=== PATIENT | male | born 1935 | race Caucasian/White ===

== ENCOUNTER 2017-12-08 16:25 | Inpatient (IN) | payer MEDICARE, OTHER ==
[2017-12-08 16:25] VITALS: BMI 28.1
[2017-12-08] MEDS ORDERED: Sodium Chloride 0.9% 500 ML IV ONE (17:18)
--- NOTE | 2017-12-08 17:21 | ED PDOC ---
Syncope/Near Syncope/Dizziness Time Seen by Provider: 12/08/17 17:18 Chief Complaint (Nursing): Weakness/Neurological Deficit Chief Complaint (Provider): WEAKNESS History Per: Patient (82 Y/O MALE H/O MILD DEMENTIA, CVA 2 YEARS AGO, DM/HTN HERE WITH NEAR SYNCOPE TODAY AT 3:30PM AFTER WALKING. DENIES ANY HEAD INJURY/ LOC. NO UNILATERAL WEAKNESS NOTED. NO DIFFICULTY WITH SPEECH PER FAMILY. DENIES ANY CHEST PAIN/ABDOMINAL PAIN/HEADACHE.) Past Medical History Reviewed: Historical Data, Nursing Documentation, Vital Signs Vital Signs: Last Vital Signs Temp 98.9 F 12/08/17 16:43 Pulse 77 12/08/17 16:43 Resp 18 12/08/17 16:43 BP 127/77 12/08/17 16:43 Pulse Ox 99 12/08/17 16:43 - Medical History PMH: Diabetes, HTN, Hypercholesterolemia, Hyperlipidemia, TIA (last TIA in [facility]) Denies: Arthritis, CHF, COPD, HIV, Hypothyroidism, Chronic Kidney Disease, Rheumatoid Arthritis - Surgical History Other surgeries: H/O FACIAL INJURY IN PAST DUE TO. H/O BOXING YOUTH - Family History Family History: States: No Known Family Hx - Home Medications Home Medications: Ambulatory Orders Medication Instructions Recorded Allopurinol [Zyloprim] 1 tab PO DAILY 12/08/17 Alpha Lipoic Acid [Alpha Lipoic 1 tab PO DAILY 12/08/17 Acid] Aspirin [Low Dose Aspirin EC] 1 tab PO DAILY 12/08/17 Atorvastatin [Lipitor] 1 tab PO HS 12/08/17 Bethanechol [Urecholine] 1 tab PO DAILY 12/08/17 Clopidogrel [Plavix] 1 tab PO DAILY 12/08/17 Enalapril Maleate [Vasotec] 1 tab PO DAILY 12/08/17 Ergocalciferol (Vitamin D2) 1 tab PO SAT 12/08/17 [Vitamin D2] Ferrous Sulfate [Feosol] 1 tab PO BID 12/08/17 Insulin Detemir [Levemir] 18 units SC HS 12/08/17 Insulin Lispro [humALOG] 5 units SC TID 12/08/17 Memantine HCl/Donepezil HCl 1 tab PO DAILY 12/08/17 [Namzaric 28 mg-10 mg Capsule] Metoprolol Succinate [Toprol XL] 1 tab PO DAILY 12/08/17 Sevelamer Carbonate [Renvela] 1 tab PO DAILY 12/08/17 Sodium Bicarbonate Tab [Sodium 1 tab PO DAILY 12/08/17 Bicarbonate Tab] Tamsulosin [Flomax] 1 tab PO BID 12/08/17 - Allergies Allergies/Adverse Reactions: Allergies Allergy/AdvReac Type Severity Reaction Status Date / Time No Known Allergies Allergy Verified 12/08/17 16:42 Review of Systems ROS Statement: Except As Marked, All Systems Reviewed And Found Negative Physical Exam - Reviewed Nursing Documentation Reviewed: Yes Vital Signs Reviewed: Yes - Physical Exam Appears: Positive for: Well, Non-toxic, No Acute Distress Head Exam: Positive for: ATRAUMATIC, NORMAL INSPECTION, NORMOCEPHALIC Skin: Positive for: Normal Color, Warm, DRY Eye Exam: Positive for: EOMI, Normal appearance, PERRL ENT: Positive for: Normal ENT Inspection Neck: Positive for: Normal, Painless ROM Cardiovascular/Chest: Positive for: Regular Rate, Rhythm Respiratory: Positive for: CNT, Normal Breath Sounds Gastrointestinal/Abdominal: Positive for: Normal Exam, Soft Back: Positive for: Normal Inspection Extremity: Positive for: Normal ROM Neurologic/Psych: Positive for: Alert, Oriented (NOT ORIENTED TO DAY/BUT ORIENTED TO MONTH AND PLACE (H/O DEMENTIA)), Other (LEFT FACIAL ASSYMETRY NOTED (OLD PER DUE TO FACIAL INJURY YOUTH)) - Laboratory Results Result Diagrams: 12/08/17 17:40 12/08/17 17:40 - ECG ECG Rhythm: Positive for: Sinus Rhythm (NSR 76BPM; NO ECTOPY ;NO ACUTE CHANGES) O2 Sat by Pulse Oximetry: 99 - Progress ED Course And Treament: ACCUCHECK 118 NS 500 ML IV BOLUS Disposition - Clinical Impression Clinical Impression: Near syncope, Dehydration - Patient ED Disposition Is Patient to be Admitted: Yes - Disposition Disposition Time: 19:02 Condition: FAIR Forms: [facility] (Portuguese) - Pt Status Changed To: Hospital Disposition Of: Observation
[2017-12-08 18:00] LABS: BASO % 0.4 % (0.0-2.0); EOS # 0.1 K/uL (0.0-0.7); EOS % 0.9 % (0.0-4.0); LYMPH % 12.1 % (20.0-40.0); MEAN CELL VOLUME 85.4 fl (80.0-94.0); MEAN CORPUSCULAR HEMOGLOBIN 27.5 pg (27.0-31.0); MEAN CORPUSCULAR HGB CONC 32.2 g/dL (33.0-37.0); MEAN PLATELET VOLUME 9.3 fl (7.2-11.7); MONO # 0.6 K/uL (0.0-0.8); MONO % 7.7 % (0.0-10.0); NEUT # 6.3 K/uL (1.8-7.0); NEUT % 78.9 % (50.0-75.0); RBC 3.65 Mil/uL (4.40-5.90); RED CELL DISTRIBUTION WIDTH 15.1 % (11.5-14.5)
[2017-12-08 18:09] LABS: ALBUMIN 3.6 g/dL (3.5-5.0); ALT/SGPT 70 U/L (21-72); AST/SGOT 85 U/L (17-59); BLOOD UREA NITROGEN 38 mg/dl (9-20); CALCIUM 8.5 mg/dL (8.4-10.2); GFR AFRICAN-AMERICAN 44; GFR NON-AFRICAN AMERICAN 36
--- NOTE | 2017-12-08 18:25 | CT ---
PROCEDURE: CT HEAD WITHOUT CONTRAST. HISTORY: NEAR SYNCOPE COMPARISON: 10/22/2015 TECHNIQUE: Axial computed tomography images were obtained through the head/brain without intravenous contrast. Radiation dose: Total exam DLP = 697.42 mGy-cm. This CT exam was performed using one or more of the following dose reduction techniques: Automated exposure control, adjustment of the mA and/or kV according to patient size, and/or use of iterative reconstruction technique. FINDINGS: HEMORRHAGE: No intracranial hemorrhage. BRAIN: No mass effect or edema. Mild diffuse age-appropriate cerebral atrophy. Moderate periventricular white matter lucency with patchy and confluent deep/ subcortical white matter lucency, consistent with chronic microvascular ischemic change. No evidence of acute infarct. VENTRICLES: Unremarkable. No hydrocephalus. CALVARIUM: Unremarkable. PARANASAL SINUSES: Unremarkable as visualized. No significant inflammatory changes. MASTOID AIR CELLS: Unremarkable as visualized. No inflammatory changes. OTHER FINDINGS: None. IMPRESSION: No intracranial mass, hemorrhage or evidence of acute infarct. Age-appropriate involutional changes.
[2017-12-08] MEDS ORDERED: Sodium Chloride 0.9% 1,000 ML IV STA ×2 (20:03→20:04)
[2017-12-08] MEDS: Dextrose 5%/0.45% NS 1,000 ML IV SCH (23:30)
--- NOTE | 2017-12-09 08:25 | CARD ---
APPROVED REPORT EKG Measurement Heart [id number] MA [id number] [id number] <Conclusion> Normal sinus rhythm Right bundle branch block Left anterior fascicular block Bifascicular block Abnormal ECG
--- NOTE | 2017-12-09 08:25 | RAD ---
PROCEDURE: CHEST RADIOGRAPH, 1 VIEW HISTORY: ROUTINE COMPARISON: None available. FINDINGS: LUNGS: Clear. PLEURA: No pneumothorax or pleural fluid seen. CARDIOVASCULAR: Normal. OSSEOUS STRUCTURES: No significant abnormalities. VISUALIZED UPPER ABDOMEN: Normal. OTHER FINDINGS: None. IMPRESSION: No active disease.
[2017-12-09 08:39] LABS: HEMOGLOBIN 10.8 g/dL (12.0-18.0); MEAN CELL VOLUME 85.6 fl (80.0-94.0); MEAN CORPUSCULAR HEMOGLOBIN 27.7 pg (27.0-31.0); MEAN CORPUSCULAR HGB CONC 32.4 g/dL (33.0-37.0); RBC 3.9 Mil/uL (4.40-5.90); RED CELL DISTRIBUTION WIDTH 15.2 % (11.5-14.5); WHITE BLOOD COUNT 7.5 K/uL (4.8-10.8)
--- NOTE | 2017-12-09 08:41 | CARD ---
APPROVED REPORT EKG Measurement Heart [id number] SD 130P41 [id number] <Conclusion> Normal sinus rhythm Pulmonary disease pattern Left anterior fascicular block Incomplete RBBB Abnormal ECG
[2017-12-09] MEDS: Metoprolol Succinate 25 mg XL Tab PO SCH (10:11)
--- NOTE | 2017-12-09 11:48 | HP ---
ADMITTING HISTORY AND PHYSICAL HISTORY OF PRESENT ILLNESS: Mr. Aguayo is an 82-year-old male who was admitted via the Emergency Room because of a near syncopal episode on the day of admission. He became dizzy after walking around and was brought to the Emergency Room. Denies speech disturbances. Denies weakness of arm or leg. PAST MEDICAL HISTORY: Remarkable for diabetes mellitus, hypertension, dementia, hyperlipidemia and transient ischemic attack. FAMILY HISTORY: Unrevealing. SOCIAL HISTORY: He does not drink or smoke. REVIEW OF SYSTEMS: Essentially remarkable for confusion and altered mental status. MEDICATIONS Multiple and include Zyloprim, acid, aspirin, Lipitor, Urecholine, Plavix, Vasotec, vitamin D, Feosol, Levemir, Humalog, Aricept, Toprol-XL, Renvela, sodium bicarbonate and Flomax. PHYSICAL EXAMINATION: GENERAL: The patient is alert, but confused. VITAL SIGNS: Blood pressure of 171/71 with a pulse of 60, and respiratory rate of 18. He is febrile. O2 saturation of 97% on room air. SKIN: Shows fair turgor. HEENT: Pupils are equal and reactive to light and accommodation. Mouth shows fair hygiene. JVP flat. LUNGS: Clear. HEART: Regular. No murmurs or gallops. GASTROINTESTINAL: Abdomen is soft and nontender. No organomegaly. EXTREMITIES: Shows no edema or cyanosis. NEUROLOGIC: On central nervous system exam, the patient is alert but confused to person, place and time. Gait is unsteady. LABORATORY DATA: Remarkable for WBC of 7.5, hemoglobin of 10.8, and platelet count of 230,000. Sodium of 145, potassium of 4.3, BUN of 30, and creatinine of 1.4. Troponin is less than 0.012. DIAGNOSTIC DATA: Chest x-ray; no active disease. CT scan of the head; no intracranial mass, hemorrhage or evidence of acute infarct, age appropriate involutional changes. EKG; normal sinus rhythm, right bundle-branch block and left anterior fascicular block. IMPRESSION AND PLAN: Near syncope, probably multifactorial and probably secondary to mild dehydration, uncontrolled hypertension and diabetes. The plan is IV hydration. Monitor blood pressure closely. Physical and occupational therapy evaluation. Second Time Worker for discharge planning once clinically stable. Nasir Rogers MD [facility] # [phone] PAYAL
--- NOTE | 2017-12-09 12:45 | CP.PCM.CON ---
History of Present Illness - History of Present Illness History of Present Illness: Neurology Consultation Note: Mr. Aguayo is an 82-year-old man with a past medical history of dementia and a CVA two years ago who had a near syncopal event yesterday while ambulating. He was brought to the ED. He was back to baseline. CT scan of the head did not show any acute findings. Neurology was consulted to assist with the management and care. Review of Systems - Review of Systems All systems: reviewed and no additional remarkable complaints except Past Patient History - Past Medical History & Family History Past Medical History?: Yes - Past Social History Smoking Status: Never Smoked - CARDIAC Hx Congestive Heart Failure: No Hx Hypercholesterolemia: Yes Hx Hypertension: Yes - PULMONARY Hx Chronic Obstructive Pulmonary Disease (COPD): No - NEUROLOGICAL HX Cerebrovascular Accident: Yes Hx Transient Ischemic Attacks (TIA): Yes (last TIA in [facility]) - HEENT Hx Cataracts: Yes (with lasik done) - RENAL Hx Chronic Kidney Disease: No - ENDOCRINE/METABOLIC Hx Diabetes Mellitus Type 2: Yes Hx Hypothyroidism: No - HEMATOLOGICAL/ONCOLOGICAL Hx AIDS: No Hx Human Immunodeficiency Virus (HIV): No - INTEGUMENTARY Hx Dermatological Problems: No - MUSCULOSKELETAL/RHEUMATOLOGICAL Hx Arthritis: No Hx Falls: No Hx Rheumatoid Arthritis: No - GASTROINTESTINAL Hx Gastrointestinal Disorders: No - GENITOURINARY/GYNECOLOGICAL Hx Genitourinary Disorders: No - PSYCHIATRIC Hx Substance Use: No Other/Comment: Dementia - SURGICAL HISTORY Hx Surgeries: Yes (cyst removal on hand) - ANESTHESIA Hx Anesthesia: Yes Hx Anesthesia Reactions: No Hx Malignant Hyperthermia: No Has any member of the family had a problem w/ anesthesia?: No Meds Allergies/Adverse Reactions: Allergies Allergy/AdvReac Type Severity Reaction Status Date / Time No Known Allergies Allergy Verified 12/08/17 16:42 - Medications Medications: Current Medications Aspirin (Ecotrin) 81 mg PO DAILY [facility] Last Admin: 12/09/17 10:10 Dose: 81 mg Atorvastatin Calcium (Lipitor) 20 mg PO [facility] Clopidogrel Bisulfate (Plavix) 75 mg PO DAILY [facility] Last Admin: 12/09/17 10:10 Dose: 75 mg Dextrose/Sodium Chloride (Dextrose 5%/0.45% Ns 1000 Ml) 1,000 mls @ 80 mls/hr IV .[id number] [facility] Stop: 12/10/17 00:44 Last Admin: 12/08/17 23:30 Dose: 80 mls/hr Insulin Detemir (Levemir) 18 units SC HS [facility] Metoprolol Succinate (Toprol Xl) 25 mg PO DAILY [facility] Last Admin: 12/09/17 10:11 Dose: 25 mg Tamsulosin HCl (Flomax) 0.4 mg PO BID [facility] Last Admin: 12/09/17 10:10 Dose: 0.4 mg Physical Exam - Neurological Exam Neurological exam: Alert, CN II-XII Intact, Normal Gait, Oriented x3, Reflexes Normal Results - Vital Signs Recent Vital Signs: Last Vital Signs Temp 98.3 F 12/09/17 12:00 Pulse 81 12/09/17 12:00 Resp 20 12/09/17 12:00 BP 164/76 H 12/09/17 12:00 Pulse Ox 98 12/09/17 12:00 - Labs Result Diagrams: 12/09/17 06:07 12/09/17 06:07 Labs: Laboratory Results - last 24 hr 12/08/17 12/08/17 12/08/17 16:56 17:40 17:40 WBC 8.0 RBC 3.65 L Hgb 10.0 L Hct 31.2 L MCV 85.4 D MCH 27.5 MCHC 32.2 L RDW 15.1 H Plt Count 211 MPV 9.3 Neut % (Auto) 78.9 H Lymph % (Auto) 12.1 L [place] % (Auto) 7.7 Eos % (Auto) 0.9 Baso % (Auto) 0.4 Neut # (Auto) 6.3 Lymph # (Auto) 1.0 [place] # (Auto) 0.6 Eos # (Auto) 0.1 Baso # (Auto) 0.0 Sodium 140 Potassium 4.7 Chloride 105 Carbon Dioxide 20 L Anion Gap 20 BUN 38 H Creatinine 1.8 H Est GFR ( Amer) 44 Est GFR (Non-Af Amer) 36 POC Glucose (mg/dL) 113 H Random Glucose 123 H Calcium 8.5 Magnesium 1.9 Total Bilirubin 0.4 AST 85 H ALT 70 Alkaline Phosphatase 357 H Troponin I < 0.0120 Total Protein 7.2 Albumin 3.6 Globulin 3.6 Albumin/Globulin Ratio 1.0 12/08/17 12/08/17 12/09/17 21:56 23:02 05:22 WBC RBC Hgb Hct MCV MCH MCHC RDW Plt Count MPV Neut % (Auto) Lymph % (Auto) [place] % (Auto) Eos % (Auto) Baso % (Auto) Neut # (Auto) Lymph # (Auto) [place] # (Auto) Eos # (Auto) Baso # (Auto) Sodium Potassium Chloride Carbon Dioxide Anion Gap BUN Creatinine Est GFR ( Amer) Est GFR (Non-Af Amer) POC Glucose (mg/dL) 67 165 H 96 Random Glucose Calcium Magnesium Total Bilirubin AST ALT Alkaline Phosphatase Troponin I Total Protein Albumin Globulin Albumin/Globulin Ratio 12/09/17 12/09/17 12/09/17 06:07 06:07 10:34 WBC 7.5 RBC 3.90 L Hgb 10.8 L Hct 33.4 L MCV 85.6 MCH 27.7 MCHC 32.4 L RDW 15.2 H Plt Count 230 MPV Neut % (Auto) Lymph % (Auto) [place] % (Auto) Eos % (Auto) Baso % (Auto) Neut # (Auto) Lymph # (Auto) [place] # (Auto) Eos # (Auto) Baso # (Auto) Sodium 145 Potassium 4.3 Chloride 104 Carbon Dioxide 27 Anion Gap 18 BUN 30 H Creatinine 1.4 Est GFR ( Amer) 59 Est GFR (Non-Af Amer) 48 POC Glucose (mg/dL) 283 H Random Glucose 107 Calcium 9.0 Magnesium Total Bilirubin AST ALT Alkaline Phosphatase Troponin I Total Protein Albumin Globulin Albumin/Globulin Ratio Assessment & Plan (1) Vasovagal near syncope Assessment and Plan: I recommend cardiac work-up and may obtain CTA of the head/neck to rule out vertebrobasilar insufficiency. Continue current medical management. Thank you. Status: Acute Priority: Medium
[2017-12-09] MEDS: Dextrose 5%/0.45% NS 1,000 ML IV SCH (13:19)
[2017-12-09] MEDS: Insulin Detemir 100 Units/ml Inj SC SCH (21:28)
[2017-12-09] MEDS ORDERED: INSULIN DETEMIR 18 UNIT SC SCH (22:00)
[2017-12-10] MEDS: Metoprolol Succinate 25 mg XL Tab PO SCH (08:53)
--- NOTE | 2017-12-10 09:19 | CARD ---
APPROVED REPORT EXAM: Two-dimensional and M-mode echocardiogram with Doppler and color Doppler. Other Information Quality : PoorRhythm : INDICATION Syncope 2D DIMENSIONS IVSd1.55 (0.7-1.1cm)LVDd3.34 (3.9-5.9cm) PWd1.27 (0.7-1.1cm)LVDs2.92 (2.5-4.0cm) FS (%) 12.6 % M-Mode DIMENSIONS Left Atrium (MM)4.12 (2.5-4.0cm)IVSd1.16 (0.7-1.1cm) Aortic Root4.23 (2.2-3.7cm)LVDd5.28 (4.0-5.6cm) Aortic Cusp Exc.2.03 (1.5-2.0cm)PWd1.17 (0.7-1.1cm) IVSs2.06 cmFS (%) 32 % LVDs3.59 (2.0-3.8cm)PWs1.56 cm Mitral Valve MV E Ncgspxyi29.8cm/sMV DECEL [id number] A Vlgxzjyv048.3cm/s MV XRI052kwR/A ratio0.5MVA (PHT)1.98cm2 TDI Lateral E' Peak V5.30cm/sMedial E' Peak V5.21cm/sE/Lateral E'9.2 E/Medial E'9.4 Pulmonary Valve PV Peak Ahjgllpo106.6cm/s Tricuspid Valve TR Peak Jrnstayc875zc/sTR Peak Gr.21mmHg LEFT VENTRICLE The left ventricle is normal size. There is normal left ventricular wall thickness. Left ventricle systolic function is normal. The Ejection Fraction is 60-65%. There is normal LV segmental wall motion. Transmitral Doppler flow pattern is Grade I-abnormal relaxation pattern. RIGHT VENTRICLE The right ventricle is normal size. There is normal right ventricular wall thickness. The right ventricular systolic function is normal. ATRIA The left atrium size is normal. The right atrium size is normal. AORTIC VALVE The aortic valve is normal in structure. No aortic regurgitation is present. There is no aortic valvular stenosis. MITRAL VALVE The mitral valve is normal in structure. There is no evidence of mitral valve prolapse. There is no mitral valve stenosis. There is no mitral valve regurgitation noted. TRICUSPID VALVE The tricuspid valve is normal in structure. There is no tricuspid valve regurgitation noted. PULMONIC VALVE The pulmonary valve is normal in structure. There is mild pulmonic valvular regurgitation. GREAT VESSELS The aortic root is mildly enlarged. Due to poor image quality, the IVC could not be assessed. PERICARDIAL EFFUSION The pericardium appears normal. <Conclusion> Echo window was poor and the quality of imges was suboptimal. The left ventricle is normal size. There is normal left ventricular wall thickness. There is normal LV segmental wall motion. Left ventricle systolic function is normal. The Ejection Fraction is 60-65%. Transmitral Doppler flow pattern is Grade I-abnormal relaxation pattern. The aortic root is mildly enlarged.
--- NOTE | 2017-12-10 10:21 | CP.PCM.CON ---
History of Present Illness - History of Present Illness History of Present Illness: This 82-year-old hypertensive diabetic man with a history of cerebrovascular accident 2 years back and some degree of dementia was brought into the hospital after a near- syncopal episode. The patient mostly spoke Slovak and the history was obtained from review of his chart. There is a history of facial injury during his youth and facial asymmetry has been present for a long time. There is no history of new motor or speech or visual symptoms. There is no history of chest pain or palpitations. There is no prior history of myocardial infarction or symptoms of congestive cardiac failure. Physical examination shows an elderly man who is awake and speaks readily when addressed. He has a slightly slurred speech. Follows commands readily. He was afebrile with a pulse rate of 72 bpm and regular and a blood pressure of 140/84 mmHg. No orthostatic changes to his blood pressure were detected. His jugular venous pressure was not elevated. His right pedal pulses was slightly feeble the left pedal pulses were quite well felt. There were no carotid bruits. The apex was not palpable. Extremities were warm and nailbeds were pink. There was no central or peripheral cyanosis. His first and second heart sounds were normal. There was no murmur or gallop. There were no rales. His abdomen was soft liver and spleen are not palpable. His electro-cardiogram showed sinus rhythm with right bundle branch block and left anterior hemiblock. There were no Q waves suggestive of a prior myocardial infarction. Echocardiographic images were suboptimal in quality but they showed preserved left ventricular systolic function with no significant valve abnormality. His lab data was reviewed. Upon arrival in the emergency room his BUN/ creatinine were 38 and 1.8 mg percent respectively with a GFR of 36 mL per minute. After hydration his BUN/creatinine this morning was 30 and 1.4 mg percent respectively with a GFR of 48 mL per minute. Impression: Near-syncopal episode in a patient who has evidence of dehydration at admission which is significantly resolved now. Hypertension, diabetes and old CVA. Telemetry shows steady sinus rhythm with no AV conduction abnormalities. I suspect most likely the near-syncopal episode may be secondary to dehydration which appears resolved. The patient is stable from cardiovascular point of view. He may be allowed to return home to be managed as an outpatient. Past Patient History - Past Medical History & Family History Past Medical History?: Yes - Past Social History Smoking Status: Never Smoked - CARDIAC Hx Congestive Heart Failure: No Hx Hypercholesterolemia: Yes Hx Hypertension: Yes - PULMONARY Hx Chronic Obstructive Pulmonary Disease (COPD): No - NEUROLOGICAL HX Cerebrovascular Accident: Yes Hx Transient Ischemic Attacks (TIA): Yes (last TIA in [facility]) - HEENT Hx Cataracts: Yes (with lasik done) - RENAL Hx Chronic Kidney Disease: No - ENDOCRINE/METABOLIC Hx Diabetes Mellitus Type 2: Yes Hx Hypothyroidism: No - HEMATOLOGICAL/ONCOLOGICAL Hx AIDS: No Hx Human Immunodeficiency Virus (HIV): No - INTEGUMENTARY Hx Dermatological Problems: No - MUSCULOSKELETAL/RHEUMATOLOGICAL Hx Arthritis: No Hx Falls: No Hx Rheumatoid Arthritis: No - GASTROINTESTINAL Hx Gastrointestinal Disorders: No - GENITOURINARY/GYNECOLOGICAL Hx Genitourinary Disorders: No - PSYCHIATRIC Hx Substance Use: No Other/Comment: Dementia - SURGICAL HISTORY Hx Surgeries: Yes (cyst removal on hand) - ANESTHESIA Hx Anesthesia: Yes Hx Anesthesia Reactions: No Hx Malignant Hyperthermia: No Has any member of the family had a problem w/ anesthesia?: No Meds Allergies/Adverse Reactions: Allergies Allergy/AdvReac Type Severity Reaction Status Date / Time No Known Allergies Allergy Verified 12/08/17 16:42 - Medications Medications: Current Medications Aspirin (Ecotrin) 81 mg PO DAILY [facility] Last Admin: 12/10/17 08:53 Dose: 81 mg Atorvastatin Calcium (Lipitor) 20 mg PO [facility] Last Admin: 12/09/17 21:30 Dose: 20 mg Clopidogrel Bisulfate (Plavix) 75 mg PO DAILY [facility] Last Admin: 12/10/17 08:53 Dose: 75 mg Insulin Detemir (Levemir) 18 units SC [facility] Last Admin: 12/09/17 21:28 Dose: 18 units Metoprolol Succinate (Toprol Xl) 25 mg PO DAILY [facility] Last Admin: 12/10/17 08:53 Dose: 25 mg Tamsulosin HCl (Flomax) 0.4 mg PO BID [facility] Last Admin: 12/10/17 08:53 Dose: 0.4 mg Results - Vital Signs Recent Vital Signs: Last Vital Signs Temp 97.8 F 12/10/17 08:00 Pulse 80 12/10/17 08:53 Resp 20 12/10/17 08:00 BP 152/78 H 12/10/17 08:53 Pulse Ox 96 12/10/17 08:00 - Labs Result Diagrams: 12/09/17 06:07 12/09/17 06:07 Labs: Laboratory Results - last 24 hr 12/09/17 12/09/17 12/09/17 05:22 10:34 16:07 POC Glucose (mg/dL) 96 283 H 167 H 12/09/17 12/10/17 21:28 05:14 POC Glucose (mg/dL) 208 H 73
--- NOTE | 2017-12-10 11:40 | CP.PCM.PN ---
Subjective - Date & Time of Evaluation Date of Evaluation: 12/10/17 Time of Evaluation: 11:40 - Subjective Subjective: STILL WEAK UNABLE TO AMBULATE WITHOUT ASSISTANCE Objective - Vital Signs/Intake and Output Vital Signs (last 24 hours): Temp Pulse Resp BP Pulse Ox 97.8 F 80 20 152/78 H 96 12/10/17 09:00 12/10/17 09:00 12/10/17 09:00 12/10/17 09:00 12/10/17 09:00 - Medications Medications: Current Medications Aspirin (Ecotrin) 81 mg PO DAILY [facility] Last Admin: 12/10/17 08:53 Dose: 81 mg Atorvastatin Calcium (Lipitor) 20 mg PO HS [facility] Last Admin: 12/09/17 21:30 Dose: 20 mg Clopidogrel Bisulfate (Plavix) 75 mg PO DAILY [facility] Last Admin: 12/10/17 08:53 Dose: 75 mg Insulin Detemir (Levemir) 18 units SC HS [facility] Last Admin: 12/09/17 21:28 Dose: 18 units Metoprolol Succinate (Toprol Xl) 25 mg PO DAILY [facility] Last Admin: 12/10/17 08:53 Dose: 25 mg Tamsulosin HCl (Flomax) 0.4 mg PO BID [facility] Last Admin: 12/10/17 08:53 Dose: 0.4 mg - Labs Labs: 12/09/17 06:07 12/09/17 06:07 - Constitutional Appears: No Acute Distress - Head Exam Head Exam: ATRAUMATIC, NORMAL INSPECTION, NORMOCEPHALIC - Eye Exam Eye Exam: EOMI, Normal appearance, PERRL Pupil Exam: NORMAL ACCOMODATION, PERRL - ENT Exam ENT Exam: Mucous Membranes Moist, Normal Exam - Neck Exam Neck Exam: Full ROM, Normal Inspection. absent: Lymphadenopathy - Respiratory Exam Respiratory Exam: Clear to Ausculation Bilateral, NORMAL BREATHING PATTERN - Cardiovascular Exam Cardiovascular Exam: REGULAR RHYTHM, +S1, +S2. absent: Murmur - GI/Abdominal Exam GI & Abdominal Exam: Soft, Normal Bowel Sounds. absent: Tenderness - Rectal Exam Rectal Exam: NORMAL INSPECTION - Extremities Exam Extremities Exam: Full ROM, Normal Capillary Refill, Normal Inspection. absent : Joint Swelling, Pedal Edema - Back Exam Back Exam: NORMAL INSPECTION - Neurological Exam Neurological Exam: Abnormal Gait, Alert, Awake, CN II-XII Intact, Normal Gait - Psychiatric Exam Psychiatric exam: Normal Affect, Normal Mood - Skin Skin Exam: Dry, Intact, Normal Color, Warm Assessment and Plan - Assessment and Plan (Free Text) Assessment: NEAR SYNCOPE DEHYDRATION ARRYTHMIAS Plan: PT EVAL D/C IN AM IF STABLE
[2017-12-10] MEDS: Insulin Detemir 100 Units/ml Inj SC SCH (22:35)
[2017-12-11 00:20] VITALS: RESP 18
--- NOTE | 2017-12-11 08:37 | CP.PCM.PN ---
Subjective - Date & Time of Evaluation Date of Evaluation: 12/11/17 Time of Evaluation: 08:40 - Subjective Subjective: NO NEW COMPLAINTS OR DISTRESS VSS S.GLUCOSE BETTER CONTROLLED Objective - Vital Signs/Intake and Output Vital Signs (last 24 hours): Temp Pulse Resp BP Pulse Ox 97.5 F L 62 18 150/86 95 12/11/17 08:06 12/11/17 08:06 12/11/17 08:06 12/11/17 08:06 12/11/17 08:06 - Medications Medications: Current Medications Aspirin (Ecotrin) 81 mg PO DAILY [facility] Last Admin: 12/10/17 08:53 Dose: 81 mg Atorvastatin Calcium (Lipitor) 20 mg PO HS [facility] Last Admin: 12/10/17 22:35 Dose: 20 mg Clopidogrel Bisulfate (Plavix) 75 mg PO DAILY [facility] Last Admin: 12/10/17 08:53 Dose: 75 mg Insulin Detemir (Levemir) 18 units SC HS [facility] Last Admin: 12/10/17 22:35 Dose: 18 units Metoprolol Succinate (Toprol Xl) 25 mg PO DAILY [facility] Last Admin: 12/10/17 08:53 Dose: 25 mg Tamsulosin HCl (Flomax) 0.4 mg PO BID [facility] Last Admin: 12/10/17 18:21 Dose: 0.4 mg - Labs Labs: 12/09/17 06:07 12/09/17 06:07 - Constitutional Appears: No Acute Distress - Head Exam Head Exam: ATRAUMATIC, NORMAL INSPECTION, NORMOCEPHALIC - Eye Exam Eye Exam: EOMI, Normal appearance, PERRL Pupil Exam: NORMAL ACCOMODATION, PERRL - ENT Exam ENT Exam: Mucous Membranes Moist, Normal Exam - Neck Exam Neck Exam: Full ROM, Normal Inspection. absent: Lymphadenopathy - Respiratory Exam Respiratory Exam: Clear to Ausculation Bilateral, NORMAL BREATHING PATTERN - Cardiovascular Exam Cardiovascular Exam: REGULAR RHYTHM, +S1, +S2. absent: Murmur - GI/Abdominal Exam GI & Abdominal Exam: Soft, Normal Bowel Sounds. absent: Tenderness - Rectal Exam Rectal Exam: NORMAL INSPECTION - Extremities Exam Extremities Exam: Full ROM, Normal Capillary Refill, Normal Inspection. absent : Joint Swelling, Pedal Edema - Back Exam Back Exam: NORMAL INSPECTION - Neurological Exam Neurological Exam: Alert, Awake, CN II-XII Intact, Normal Gait - Psychiatric Exam Psychiatric exam: Normal Affect, Normal Mood - Skin Skin Exam: Dry, Intact, Normal Color, Warm Assessment and Plan - Assessment and Plan (Free Text) Assessment: NEAR SYNCOPE DM TYPE 2 HTN DEHYDRATION-RESOLVED HX OF OLD CVA Plan: AWAIT PT EVAL AND RESULTS OF CAROTID/VERT DOPPLERS WILL PROBABLY DISCHARGE HOME TODAY AND HAVE PT FOLLOW UP WITH PMD FOR FURTHER EVAL
[2017-12-11] MEDS: Metoprolol Succinate 25 mg XL Tab PO SCH (08:52)
--- NOTE | 2017-12-11 09:33 | US ---
PROCEDURE: Duplex ultrasound of the carotid and vertebral arteries. HISTORY: syncope COMPARISON: Carotid ultrasound dated 10/22/2015. TECHNIQUE: Grayscale and duplex Doppler evaluation of the cervical carotid and vertebral arteries were performed. The common carotid, carotid bifurcations and cervical ICA and proximal ECA were evaluated. The vertebral arteries were evaluated for gross patency and direction. FINDINGS: RIGHT CAROTID ARTERIES: Common Carotid Artery: Normal. Maximal flow velocity of 96.8 cm/s. Carotid Bifurcation: Calcific plaque. Internal Carotid Artery:Calcific plaque. Maximal flow velocity of 69.3 cm/s. External Carotid Artery (proximal branches): Normal. Maximal flow velocity of 78.8 cm/s. ICA/CCA Ratio: 0.7 LEFT CAROTID ARTERIES: Common Carotid Artery: Normal. Maximal flow velocity of 67.3 cm/s. Carotid Bifurcation: Calcific and noncalcific plaque. Internal Carotid Artery:Calcific plaque. Maximal flow velocity of 84.0 cm/s. External Carotid Artery (proximal branches): Normal. Maximal flow velocity of 58.1 cm/s. ICA/CCA Ratio: 1.2 VERTEBRAL ARTERIES: Right Vertebral Artery: Patent. Antegrade flow. Left Vertebral Artery: Patent. Antegrade flow. OTHER FINDINGS: None. IMPRESSION: Per NASCET criteria, less than 50 percent stenosis of the internal carotid arteries bilaterally.
--- NOTE | 2017-12-11 09:48 | CP.PCM.PN ---
Subjective - Date & Time of Evaluation Date of Evaluation: 12/11/17 Time of Evaluation: 09:46 - Subjective Subjective: Mr. Aguayo was seen and examined at the bedside. He is alert, oriented. He denies any headache, dizziness, lightheadedness, blurred vision, diplopia. He is able to follow simple commands with a slow pace. The carotid ultrasound showed a less than 50% stenosis of bilateral ICA. There was no untoward events overnight. Objective - Vital Signs/Intake and Output Vital Signs (last 24 hours): Temp Pulse Resp BP Pulse Ox 97.5 F L 62 18 150/86 95 12/11/17 08:06 12/11/17 08:52 12/11/17 08:06 12/11/17 08:52 12/11/17 08:06 - Medications Medications: Current Medications Aspirin (Ecotrin) 81 mg PO DAILY [facility] Last Admin: 12/11/17 08:52 Dose: 81 mg Atorvastatin Calcium (Lipitor) 20 mg PO HS [facility] Last Admin: 12/10/17 22:35 Dose: 20 mg Clopidogrel Bisulfate (Plavix) 75 mg PO DAILY [facility] Last Admin: 12/11/17 08:52 Dose: 75 mg Insulin Detemir (Levemir) 18 units SC HS [facility] Last Admin: 12/10/17 22:35 Dose: 18 units Metoprolol Succinate (Toprol Xl) 25 mg PO DAILY [facility] Last Admin: 12/11/17 08:52 Dose: 25 mg Tamsulosin HCl (Flomax) 0.4 mg PO BID [facility] Last Admin: 12/11/17 08:51 Dose: 0.4 mg - Labs Labs: 12/09/17 06:07 12/09/17 06:07 - Constitutional Appears: No Acute Distress - Head Exam Head Exam: NORMAL INSPECTION - Neurological Exam Neurological Exam: Alert, Awake Neuro motor strength exam: Left Upper Extremity: 4, Right Upper Extremity: 4, Left Lower Extremity: 3, Right Lower Extremity: 3 Additional comments: He is alert, oriented, able to follow simple commands. Sensation remains intact. Assessment and Plan (1) Vasovagal near syncope Assessment & Plan: Case discussed with Dr. Lambert, continue all current medical, physical, and occupational regimen. Recommend to follow any orders from cardiology. Encourage increase po intake to assist with his near syncope. Status: Acute
[2017-12-12] MEDS: Insulin Detemir 100 Units/ml Inj SC SCH (01:26)
[2017-12-12 08:35] VITALS: O2SAT 97
[2017-12-12] MEDS: Metoprolol Succinate 25 mg XL Tab PO SCH (09:19)
--- NOTE | 2017-12-12 09:28 | CP.PCM.DIS ---
Provider - Provider Date of Admission: 12/09/17 09:38 Attending physician: Nasir Rogers MD Time Spent in preparation of Discharge (in minutes): 30 Diagnosis - Discharge Diagnosis (1) Dehydration Status: Acute (2) Near syncope Status: Acute (3) Diabetes 1.5, managed as type 2 Status: Acute (4) Hypertension Status: Acute Hospital Course - Lab Results Lab Results: Most Recent Lab Values WBC 7.5 K/uL (4.8-10.8) 12/09/17 06:07 RBC 3.90 Mil/uL (4.40-5.90) L 12/09/17 06:07 Hgb 10.8 g/dL (12.0-18.0) L 12/09/17 06:07 Hct 33.4 % (35.0-51.0) L 12/09/17 06:07 MCV 85.6 fl (80.0-94.0) 12/09/17 06:07 MCH 27.7 pg (27.0-31.0) 12/09/17 06:07 MCHC 32.4 g/dL (33.0-37.0) L 12/09/17 06:07 RDW 15.2 % (11.5-14.5) H 12/09/17 06:07 Plt Count 230 K/uL (130-400) 12/09/17 06:07 MPV 9.3 fl (7.2-11.7) 12/08/17 17:40 Neut % (Auto) 78.9 % (50.0-75.0) H 12/08/17 17:40 Lymph % (Auto) 12.1 % (20.0-40.0) L 12/08/17 17:40 Nolan % (Auto) 7.7 % (0.0-10.0) 12/08/17 17:40 Eos % (Auto) 0.9 % (0.0-4.0) 12/08/17 17:40 Baso % (Auto) 0.4 % (0.0-2.0) 12/08/17 17:40 Neut # (Auto) 6.3 K/uL (1.8-7.0) 12/08/17 17:40 Lymph # (Auto) 1.0 K/uL (1.0-4.3) 12/08/17 17:40 Nolan # (Auto) 0.6 K/uL (0.0-0.8) 12/08/17 17:40 Eos # (Auto) 0.1 K/uL (0.0-0.7) 12/08/17 17:40 Baso # (Auto) 0.0 K/uL (0.0-0.2) 12/08/17 17:40 Sodium 145 mmol/l (132-148) 12/09/17 06:07 Potassium 4.3 MMOL/L (3.6-5.0) 12/09/17 06:07 Chloride 104 mmol/L (98-107) 12/09/17 06:07 Carbon Dioxide 27 mmol/L (22-30) 12/09/17 06:07 Anion Gap 18 (10-20) 12/09/17 06:07 BUN 30 mg/dl (9-20) H 12/09/17 06:07 Creatinine 1.4 mg/dl (0.8-1.5) 12/09/17 06:07 Est GFR ( Amer) 59 12/09/17 06:07 Est GFR (Non-Af Amer) 48 12/09/17 06:07 POC Glucose (mg/dL) 163 mg/dL (65-110) H 12/11/17 21:06 Random Glucose 107 mg/dL (75-110) 12/09/17 06:07 Calcium 9.0 mg/dL (8.4-10.2) 12/09/17 06:07 Magnesium 1.9 MG/DL (1.6-2.3) 12/08/17 17:40 Total Bilirubin 0.4 mg/dl (0.2-1.3) 12/08/17 17:40 AST 85 U/L (17-59) H 12/08/17 17:40 ALT 70 U/L (21-72) 12/08/17 17:40 Alkaline Phosphatase 357 U/L (38-126) H 12/08/17 17:40 Troponin I < 0.0120 ng/mL (0.00-0.120) 12/08/17 17:40 Total Protein 7.2 G/DL (6.3-8.2) 12/08/17 17:40 Albumin 3.6 g/dL (3.5-5.0) 12/08/17 17:40 Globulin 3.6 gm/dL (2.2-3.9) 12/08/17 17:40 Albumin/Globulin Ratio 1.0 (1.0-2.1) 12/08/17 17:40 - Hospital Course Hospital Course: GAIT IS STILL UNSTEADY Discharge Exam - Head Exam Head Exam: NORMAL INSPECTION - Eye Exam Eye Exam: EOMI, Normal appearance, PERRL Pupil Exam: NORMAL ACCOMODATION, PERRL - GI/Abdominal Exam GI & Abdominal Exam: Normal Bowel Sounds - Rectal Exam Rectal Exam: NORMAL INSPECTION - Neurological Exam Neurological exam: Abnormal Gait, Alert, CN II-XII Intact, Reflexes Normal - Psychiatric Exam Psychiatric exam: Normal Affect, Normal Mood - Skin Skin Exam: Dry, Intact, Normal Color, Warm Discharge Plan - Follow Up Plan Condition: FAIR Disposition: HOME/ ROUTINE Patient education suggested?: Yes Instructions: Dehydration, Adult (DC), Syncope (Fainting) (DC) Additional Instructions: TRANSFER TO TCU Referrals: Arias Lambert MD [Medical Doctor] - Jose Gray MD [Family Provider] -
--- NOTE | 2017-12-12 11:00 | PQF GENQUE ---
Dr. Rogers, Is there an associated diagnosis to go along with the following clinical labs: BUN:38->30 Creatinine:1.8->1.4 Est GFR ( Amer/Non- Af Amer):44/36->59/48 OR: Disagree OR: Other explanation of clinical finding H and P: Near syncope, probably multifactorial and probably secondary to mild dehydration, uncontrolled hypertension and diabetes. The plan is IV hydration. Monitor blood pressure closely. Cardiology consult:I suspect most likely the near-syncopal episode may be secondary to dehydration which appears resolved IVF's 500 mls/hr-> 60mls/hr->80mls/hr This form is a permanent part of the medical record Clarification of your documentation is requested to better reflect the severity of illness and intensity of treatment of your patient. Indicators present [] Specify: [] [] Specify: [] [] Specify: [] [] Specify: [] Location in the medical record that reflects the above clinical findings: [] Treatment Provided: [] PHYSICIAN'S RESPONSE Based on your medical judgment of the clinical indicators outlined above please clarify the following: [X] Practitioner response --ELEVATED BUN/CR DUE TO DEHYDRATION [] If unable to determine, please check the box, sign and date. Present On Admission (POA) Indicator: [] Present at the time of admission [] Not present at the time of admission [] Clinically Undetermined In responding to this query, please exercise your independent professional judgment. The fact that a question is asked does not imply that any particular answer is desired or expected. Thank you for your clarification on this documentation. If you have any questions please call. * Thank you, Subha Daniel RN ext. #[phone] MTDD
--- NOTE | 2017-12-12 11:11 | PQF GENQUE ---
Dr. Rogers, The attending physician is required to clarify conflicting documentation in the medical record. The following documentation is noted in the medical record: Diagnosis 1: Vasovegal Near Syncope Documented by: Neurology Location: Consult Diagnosis 2: Near Syncope may be secondary to Dehydration Documented by: Cardiology Location: Consult This form is a permanent part of the medical record Clarification of your documentation is requested to better reflect the severity of illness and intensity of treatment of your patient. Indicators present [] Specify: [] [] Specify: [] [] Specify: [] [] Specify: [] Location in the medical record that reflects the above clinical findings: [] Treatment Provided: [] PHYSICIAN'S RESPONSE Based on your medical judgment of the clinical indicators outlined above please clarify the following: [] Practitioner response [] If unable to determine, please check the box, sign and date. Present On Admission (POA) Indicator: [] Present at the time of admission [] Not present at the time of admission [] Clinically Undetermined In responding to this query, please exercise your independent professional judgment. The fact that a question is asked does not imply that any particular answer is desired or expected. Thank you for your clarification on this documentation. If you have any questions please call. * Thank you, Subha Daniel RN ext. #[phone] MTDD
[2017-12-12 12:29] VITALS: BP 107/71; PULSE 104; TEMP 98.4
== END 2017-12-12 15:11 | DRG 641 ==
LOC: H.ER 16:25 → H.ERHOLD 19:08 → H.TEL 21:42 → OBSVTOIN 12-09 09:38
PROVIDERS: ADMIT Internal Medicine Pulmonary Disease; ATTEND Internal Medicine Pulmonary Disease
DX: E86.0 Dehydration (principal); I10 Essential (primary) hypertension; E11.65 Type 2 diabetes mellitus with hyperglycemia; F03.90 Unspecified dementia, unspecified severity, without behavioral disturbance, psychotic disturbance, mood disturbance, and anxiety; Z86.73 Personal history of transient ischemic attack (TIA), and cerebral infarction without residual deficits; E78.00 Pure hypercholesterolemia, unspecified; R47.81 Slurred speech; R55 Syncope and collapse; R26.81 Unsteadiness on feet; E78.5 Hyperlipidemia, unspecified

== ENCOUNTER 2017-12-12 13:47 | Inpatient (IN) | payer OTHER ==
[2017-12-12 16:01] VITALS: RESP 20
[2017-12-12] MEDS: Insulin Detemir 100 Units/ml Inj SC SCH (21:40)
[2017-12-13] MEDS: Metoprolol Succinate 25 mg XL Tab PO SCH (08:33)
--- NOTE | 2017-12-13 11:05 | HP ---
ADMITTING HISTORY AND PHYSICAL HISTORY OF PRESENT ILLNESS: Mr. Aguayo is an 82-year-old male who was transferred from the medical floor to the Transitional Care Unit with a diagnosis of near syncopal episode associated with severe dehydration and uncontrolled hypertension. He has had been worked up by both Neurology and Cardiology and findings are unremarkable, but his gait remained unsteady, so he was transferred to Transitional Care Unit for aggressive physical and occupational therapy. PAST MEDICAL HISTORY: He has a past medical history of hypertension, diabetes mellitus, hyperlipidemia and benign prostatic hypertrophy. FAMILY HISTORY: Noncontributory. SOCIAL HISTORY: He does not drink or smoke and lives at home with family. REVIEW OF SYSTEMS: Essentially unremarkable. PHYSICAL EXAMINATION: GENERAL: The patient is alert, oriented, and appears to be still in some distress because of unsteadiness of gait. VITAL SIGNS: Blood pressure of 145/76, pulse of 64, respiratory rate is 20. He is febrile. O2 saturation is 99% on room air. SKIN: Shows fair turgor. HEENT: Pupils are equal and reactive to light and accommodation. JVP is flat. Mouth shows fair hygiene. LUNGS: Clear. HEART: Regular. No murmurs or gallop. BREASTS: Normal. GASTROINTESTINAL: Abdomen is soft, nontender, and no organomegaly. EXTREMITIES: Shows no edema or cyanosis. NEUROLOGIC: Central nervous system exam is remarkable for unsteadiness of gait, otherwise unremarkable. LABORATORY DATA: Pending. IMPRESSION: Near syncopal episode, dehydration, hypertension, hyperlipidemia, and benign prostatic hypertrophy. PLAN: The plan is continue aggressive PT and OT. We will discharge home once clinically stable. Nasir Rogers MD
[2017-12-13] MEDS: Insulin Detemir 100 Units/ml Inj SC SCH (22:00)
[2017-12-14] MEDS: Metoprolol Succinate 25 mg XL Tab PO SCH (08:20)
--- NOTE | 2017-12-14 09:19 | CP.PCM.PN ---
Subjective - Date & Time of Evaluation Date of Evaluation: 12/14/17 Time of Evaluation: 09:19 - Subjective Subjective: CLINICALLY IMPROVING Objective - Vital Signs/Intake and Output Vital Signs (last 24 hours): Temp Pulse Resp BP Pulse Ox 97.9 F 67 20 136/67 99 12/14/17 08:37 12/14/17 08:37 12/14/17 08:37 12/14/17 08:37 12/14/17 08:37 - Medications Medications: Current Medications Aspirin (Ecotrin) 81 mg PO DAILY [facility] Last Admin: 12/14/17 08:20 Dose: 81 mg Atorvastatin Calcium (Lipitor) 20 mg PO HS [facility] Last Admin: 12/13/17 22:00 Dose: 20 mg Clopidogrel Bisulfate (Plavix) 75 mg PO DAILY [facility] Last Admin: 12/14/17 08:20 Dose: 75 mg Insulin Detemir (Levemir) 18 units SC HS [facility] Last Admin: 12/13/17 22:00 Dose: 18 u Metoprolol Succinate (Toprol Xl) 25 mg PO DAILY [facility] Last Admin: 12/14/17 08:20 Dose: 25 mg Tamsulosin HCl (Flomax) 0.4 mg PO BID [facility] Last Admin: 12/14/17 08:20 Dose: 0.4 mg - Constitutional Appears: No Acute Distress - Head Exam Head Exam: ATRAUMATIC, NORMAL INSPECTION, NORMOCEPHALIC - Eye Exam Eye Exam: EOMI, Normal appearance, PERRL Pupil Exam: NORMAL ACCOMODATION, PERRL - ENT Exam ENT Exam: Mucous Membranes Moist, Normal Exam - Neck Exam Neck Exam: Full ROM, Normal Inspection. absent: Lymphadenopathy - Respiratory Exam Respiratory Exam: Clear to Ausculation Bilateral, NORMAL BREATHING PATTERN - Cardiovascular Exam Cardiovascular Exam: REGULAR RHYTHM, +S1, +S2. absent: Murmur - GI/Abdominal Exam GI & Abdominal Exam: Soft, Normal Bowel Sounds. absent: Tenderness - Rectal Exam Rectal Exam: NORMAL INSPECTION - Extremities Exam Extremities Exam: Full ROM, Normal Capillary Refill, Normal Inspection. absent : Joint Swelling, Pedal Edema - Back Exam Back Exam: NORMAL INSPECTION - Neurological Exam Neurological Exam: Alert, Awake, CN II-XII Intact, Normal Gait, Oriented x3 - Psychiatric Exam Psychiatric exam: Normal Affect, Normal Mood - Skin Skin Exam: Dry, Intact, Normal Color, Warm Assessment and Plan - Assessment and Plan (Free Text) Assessment: SYNCOPE Plan: CONTINUE PRESENT RX
[2017-12-14] MEDS: Insulin Detemir 100 Units/ml Inj SC SCH (21:27)
[2017-12-15] MEDS: Metoprolol Succinate 25 mg XL Tab PO SCH (08:16)
--- NOTE | 2017-12-15 14:18 | CP.PCM.PN ---
Subjective - Date & Time of Evaluation Date of Evaluation: 12/15/17 Time of Evaluation: 14:18 - Subjective Subjective: pt progressing well no apparent distress Objective - Vital Signs/Intake and Output Vital Signs (last 24 hours): Temp Pulse Resp BP Pulse Ox 98.0 F 68 20 139/74 99 12/15/17 08:03 12/15/17 08:16 12/15/17 08:03 12/15/17 08:16 12/15/17 08:03 - Medications Medications: Current Medications Aspirin (Ecotrin) 81 mg PO DAILY [facility] Last Admin: 12/15/17 08:16 Dose: 81 mg Atorvastatin Calcium (Lipitor) 20 mg PO [facility] Last Admin: 12/14/17 21:25 Dose: 20 mg Clopidogrel Bisulfate (Plavix) 75 mg PO DAILY [facility] Last Admin: 12/15/17 08:16 Dose: 75 mg Insulin Detemir (Levemir) 18 units SC [facility] Last Admin: 12/14/17 21:27 Dose: 18 u Metoprolol Succinate (Toprol Xl) 25 mg PO DAILY [facility] Last Admin: 12/15/17 08:16 Dose: 25 mg Tamsulosin HCl (Flomax) 0.4 mg PO BID [facility] Last Admin: 12/15/17 08:16 Dose: 0.4 mg - Constitutional Appears: No Acute Distress - Head Exam Head Exam: ATRAUMATIC, NORMAL INSPECTION, NORMOCEPHALIC - Eye Exam Eye Exam: EOMI, Normal appearance, PERRL Pupil Exam: NORMAL ACCOMODATION, PERRL - ENT Exam ENT Exam: Mucous Membranes Moist, Normal Exam - Neck Exam Neck Exam: Full ROM, Normal Inspection. absent: Lymphadenopathy - Respiratory Exam Respiratory Exam: Clear to Ausculation Bilateral, NORMAL BREATHING PATTERN - Cardiovascular Exam Cardiovascular Exam: REGULAR RHYTHM, +S1, +S2. absent: Murmur - GI/Abdominal Exam GI & Abdominal Exam: Soft, Normal Bowel Sounds. absent: Tenderness - Rectal Exam Rectal Exam: NORMAL INSPECTION - Extremities Exam Extremities Exam: Full ROM, Normal Capillary Refill, Normal Inspection. absent : Joint Swelling, Pedal Edema - Back Exam Back Exam: NORMAL INSPECTION - Neurological Exam Neurological Exam: Alert, Awake, CN II-XII Intact, Normal Gait, Oriented x3 - Psychiatric Exam Psychiatric exam: Normal Affect, Normal Mood - Skin Skin Exam: Dry, Intact, Normal Color, Warm Assessment and Plan - Assessment and Plan (Free Text) Assessment: near syncope due to dehydration
[2017-12-15] MEDS: Insulin Detemir 100 Units/ml Inj SC SCH (22:06)
[2017-12-16] MEDS: Metoprolol Succinate 25 mg XL Tab PO SCH (08:59)
--- NOTE | 2017-12-16 11:29 | CP.PCM.PN ---
Subjective - Date & Time of Evaluation Date of Evaluation: 12/16/17 Time of Evaluation: 11:29 - Subjective Subjective: NO APPARENT DISTRESS VSS Objective - Vital Signs/Intake and Output Vital Signs (last 24 hours): Temp Pulse Resp BP Pulse Ox 97.7 F 91 H 20 132/67 97 12/16/17 09:00 12/16/17 09:34 12/16/17 09:00 12/16/17 09:00 12/16/17 09:00 - Medications Medications: Current Medications Aspirin (Ecotrin) 81 mg PO DAILY [facility] Last Admin: 12/16/17 08:59 Dose: 81 mg Atorvastatin Calcium (Lipitor) 20 mg PO HS [facility] Last Admin: 12/15/17 22:08 Dose: 20 mg Clopidogrel Bisulfate (Plavix) 75 mg PO DAILY [facility] Last Admin: 12/16/17 08:59 Dose: 75 mg Insulin Detemir (Levemir) 18 units SC HS [facility] Last Admin: 12/15/17 22:06 Dose: 18 u Metoprolol Succinate (Toprol Xl) 25 mg PO DAILY [facility] Last Admin: 12/16/17 08:59 Dose: 25 mg Tamsulosin HCl (Flomax) 0.4 mg PO BID [facility] Last Admin: 12/16/17 08:59 Dose: 0.4 mg - Constitutional Appears: No Acute Distress - Head Exam Head Exam: ATRAUMATIC, NORMAL INSPECTION, NORMOCEPHALIC - Eye Exam Eye Exam: EOMI, Normal appearance, PERRL Pupil Exam: NORMAL ACCOMODATION, PERRL - ENT Exam ENT Exam: Mucous Membranes Moist, Normal Exam - Neck Exam Neck Exam: Full ROM, Normal Inspection. absent: Lymphadenopathy - Respiratory Exam Respiratory Exam: Clear to Ausculation Bilateral, NORMAL BREATHING PATTERN - Cardiovascular Exam Cardiovascular Exam: REGULAR RHYTHM, +S1, +S2. absent: Murmur - GI/Abdominal Exam GI & Abdominal Exam: Soft, Normal Bowel Sounds. absent: Tenderness - Rectal Exam Rectal Exam: NORMAL INSPECTION - Extremities Exam Extremities Exam: Full ROM, Normal Capillary Refill, Normal Inspection. absent : Joint Swelling, Pedal Edema - Back Exam Back Exam: NORMAL INSPECTION - Neurological Exam Neurological Exam: Alert, Awake, CN II-XII Intact, Normal Gait, Oriented x3 - Psychiatric Exam Psychiatric exam: Normal Affect, Normal Mood - Skin Skin Exam: Dry, Intact, Normal Color, Warm Assessment and Plan - Assessment and Plan (Free Text) Assessment: SYNCOPE DEHYDRATION--IMPROVED Plan: CONTINUE CURRENT RX
[2017-12-16] MEDS: Insulin Detemir 100 Units/ml Inj SC SCH (21:17)
[2017-12-17] MEDS: Metoprolol Succinate 25 mg XL Tab PO SCH (09:29)
--- NOTE | 2017-12-17 11:40 | CP.PCM.PN ---
Subjective - Date & Time of Evaluation Date of Evaluation: 12/17/17 Time of Evaluation: 11:40 - Subjective Subjective: OOB TO CHAIR NO APPARENT DISTRESS VSS Objective - Vital Signs/Intake and Output Vital Signs (last 24 hours): Temp Pulse Resp BP Pulse Ox 98.1 F 83 20 112/64 95 12/17/17 08:00 12/17/17 09:29 12/17/17 08:00 12/17/17 09:29 12/17/17 08:00 - Medications Medications: Current Medications Aspirin (Ecotrin) 81 mg PO DAILY [facility] Last Admin: 12/17/17 09:28 Dose: 81 mg Atorvastatin Calcium (Lipitor) 20 mg PO HS [facility] Last Admin: 12/16/17 21:17 Dose: 20 mg Clopidogrel Bisulfate (Plavix) 75 mg PO DAILY [facility] Last Admin: 12/17/17 09:29 Dose: 75 mg Insulin Detemir (Levemir) 18 units SC [facility] Last Admin: 12/16/17 21:17 Dose: 18 u Metoprolol Succinate (Toprol Xl) 25 mg PO DAILY [facility] Last Admin: 12/17/17 09:29 Dose: 25 mg Tamsulosin HCl (Flomax) 0.4 mg PO BID [facility] Last Admin: 12/17/17 09:29 Dose: 0.4 mg - Constitutional Appears: No Acute Distress - Head Exam Head Exam: ATRAUMATIC, NORMAL INSPECTION, NORMOCEPHALIC - Eye Exam Eye Exam: EOMI, Normal appearance, PERRL Pupil Exam: NORMAL ACCOMODATION, PERRL - ENT Exam ENT Exam: Mucous Membranes Moist, Normal Exam - Neck Exam Neck Exam: Full ROM, Normal Inspection. absent: Lymphadenopathy - Respiratory Exam Respiratory Exam: Clear to Ausculation Bilateral, NORMAL BREATHING PATTERN - Cardiovascular Exam Cardiovascular Exam: REGULAR RHYTHM, +S1, +S2. absent: Murmur - GI/Abdominal Exam GI & Abdominal Exam: Soft, Normal Bowel Sounds. absent: Tenderness - Rectal Exam Rectal Exam: NORMAL INSPECTION - Extremities Exam Extremities Exam: Full ROM, Normal Capillary Refill, Normal Inspection. absent : Joint Swelling, Pedal Edema - Back Exam Back Exam: NORMAL INSPECTION - Neurological Exam Neurological Exam: Alert, Awake, CN II-XII Intact, Normal Gait, Oriented x3 - Psychiatric Exam Psychiatric exam: Normal Affect, Normal Mood - Skin Skin Exam: Dry, Intact, Normal Color, Warm Assessment and Plan - Assessment and Plan (Free Text) Assessment: NEAR SYNCOPE HTN HYPERLIPIDEMIA Plan: CONTINUE CURRENT RX
[2017-12-17] MEDS: Insulin Detemir 100 Units/ml Inj SC SCH (21:13)
--- NOTE | 2017-12-18 08:25 | CP.PCM.PN ---
Subjective - Date & Time of Evaluation Date of Evaluation: 12/18/17 Time of Evaluation: 08:25 - Subjective Subjective: NO COMPLAINTS/DISTRESS VSS APPETITE FAIR Objective - Vital Signs/Intake and Output Vital Signs (last 24 hours): Temp Pulse Resp BP Pulse Ox 97.7 F 74 20 109/65 99 12/18/17 08:09 12/18/17 08:09 12/18/17 08:09 12/18/17 08:09 12/18/17 08:09 - Medications Medications: Current Medications Aspirin (Ecotrin) 81 mg PO DAILY [facility] Last Admin: 12/17/17 09:28 Dose: 81 mg Atorvastatin Calcium (Lipitor) 20 mg PO HS [facility] Last Admin: 12/17/17 21:13 Dose: 20 mg Clopidogrel Bisulfate (Plavix) 75 mg PO DAILY [facility] Last Admin: 12/17/17 09:29 Dose: 75 mg Insulin Detemir (Levemir) 18 units SC HS [facility] Last Admin: 12/17/17 21:13 Dose: 18 u Metoprolol Succinate (Toprol Xl) 25 mg PO DAILY [facility] Last Admin: 12/17/17 09:29 Dose: 25 mg Tamsulosin HCl (Flomax) 0.4 mg PO BID [facility] Last Admin: 12/17/17 16:25 Dose: 0.4 mg - Constitutional Appears: No Acute Distress - Head Exam Head Exam: ATRAUMATIC, NORMAL INSPECTION, NORMOCEPHALIC - Eye Exam Eye Exam: EOMI, Normal appearance, PERRL Pupil Exam: NORMAL ACCOMODATION, PERRL - ENT Exam ENT Exam: Mucous Membranes Moist, Normal Exam - Neck Exam Neck Exam: Full ROM, Normal Inspection. absent: Lymphadenopathy - Respiratory Exam Respiratory Exam: Clear to Ausculation Bilateral, NORMAL BREATHING PATTERN - Cardiovascular Exam Cardiovascular Exam: REGULAR RHYTHM, +S1, +S2. absent: Murmur - GI/Abdominal Exam GI & Abdominal Exam: Soft, Normal Bowel Sounds. absent: Tenderness - Rectal Exam Rectal Exam: NORMAL INSPECTION - Extremities Exam Extremities Exam: Full ROM, Normal Capillary Refill, Normal Inspection. absent : Joint Swelling, Pedal Edema - Back Exam Back Exam: NORMAL INSPECTION - Neurological Exam Neurological Exam: Alert, Awake, CN II-XII Intact, Normal Gait, Oriented x3 - Psychiatric Exam Psychiatric exam: Normal Affect, Normal Mood - Skin Skin Exam: Dry, Intact, Normal Color, Warm Assessment and Plan - Assessment and Plan (Free Text) Assessment: NEAR SYNCOPE DEHYDRATION Plan: CONTINUE CURRENT RX
[2017-12-18] MEDS: Metoprolol Succinate 25 mg XL Tab PO SCH (08:39)
[2017-12-18] MEDS: Insulin Detemir 100 Units/ml Inj SC SCH (21:34)
[2017-12-19] MEDS: Metoprolol Succinate 25 mg XL Tab PO SCH (08:26)
--- NOTE | 2017-12-19 09:33 | CP.PCM.DIS ---
Provider - Provider Date of Admission: 12/12/17 15:11 Attending physician: Nasir Rogers MD Time Spent in preparation of Discharge (in minutes): 30 Diagnosis - Discharge Diagnosis (1) Dehydration Status: Acute (2) Hypertension Status: Acute (3) Near syncope Status: Acute (4) Vasovagal near syncope Status: Acute Priority: Medium (5) BPH (benign prostatic hyperplasia) Status: Acute (6) Diabetes 1.5, managed as type 2 Status: Acute Hospital Course - Lab Results Lab Results: Most Recent Lab Values POC Glucose (mg/dL) 102 mg/dL (65-110) 12/19/17 05:35 - Hospital Course Hospital Course: CLINICALLY IMPROVED Discharge Exam - Head Exam Head Exam: ATRAUMATIC, NORMAL INSPECTION, NORMOCEPHALIC - Eye Exam Eye Exam: EOMI, Normal appearance, PERRL Pupil Exam: NORMAL ACCOMODATION, PERRL - GI/Abdominal Exam GI & Abdominal Exam: Normal Bowel Sounds - Rectal Exam Rectal Exam: NORMAL INSPECTION - Neurological Exam Neurological exam: Alert, CN II-XII Intact, Normal Gait, Oriented x3, Reflexes Normal - Psychiatric Exam Psychiatric exam: Normal Affect, Normal Mood - Skin Skin Exam: Dry, Intact, Normal Color, Warm Discharge Plan - Follow Up Plan Condition: GOOD Disposition: HOME/ ROUTINE Patient education suggested?: Yes Additional Instructions: FOLLOW UP WITH PMD
--- NOTE | 2017-12-19 09:37 | CP.PCM.PN ---
Subjective - Date & Time of Evaluation Date of Evaluation: 12/19/17 Time of Evaluation: 09:37 - Subjective Subjective: CLINICALLY IMPROVED NO NEW FINDINGS WILL D/C HOME IN AM DECREASE FLOMAX TO DAILY Objective - Vital Signs/Intake and Output Vital Signs (last 24 hours): Temp Pulse Resp BP Pulse Ox 97.8 F 68 20 113/62 99 12/19/17 08:17 12/19/17 08:26 12/19/17 08:17 12/19/17 08:26 12/19/17 08:17 - Medications Medications: Current Medications Aspirin (Ecotrin) 81 mg PO DAILY [facility] Last Admin: 12/19/17 08:26 Dose: 81 mg Atorvastatin Calcium (Lipitor) 20 mg PO HS [facility] Last Admin: 12/18/17 21:34 Dose: 20 mg Clopidogrel Bisulfate (Plavix) 75 mg PO DAILY [facility] Last Admin: 12/19/17 08:26 Dose: 75 mg Insulin Detemir (Levemir) 18 units SC HS [facility] Last Admin: 12/18/17 21:34 Dose: 18 u Metoprolol Succinate (Toprol Xl) 25 mg PO DAILY [facility] Last Admin: 12/19/17 08:26 Dose: 25 mg Tamsulosin HCl (Flomax) 0.4 mg PO DAILY [facility] Assessment and Plan (1) Dehydration Status: Acute (2) Hypertension Status: Acute (3) Near syncope Status: Acute (4) Vasovagal near syncope Status: Acute (5) BPH (benign prostatic hyperplasia) Status: Acute (6) Diabetes 1.5, managed as type 2 Status: Acute
[2017-12-19] MEDS: Insulin Detemir 100 Units/ml Inj SC SCH (21:16)
[2017-12-20 08:03] VITALS: BP 102/58; PULSE 69; TEMP 97.9; O2SAT 95
[2017-12-20] MEDS: Metoprolol Succinate 25 mg XL Tab PO SCH (08:05)
--- NOTE | 2017-12-20 09:31 | CP.PCM.PN ---
Subjective - Date & Time of Evaluation Date of Evaluation: 12/20/17 Time of Evaluation: 09:31 - Subjective Subjective: clinically improved no apparent distress Objective - Vital Signs/Intake and Output Vital Signs (last 24 hours): Temp Pulse Resp BP Pulse Ox 97.9 F 69 20 102/58 L 95 12/20/17 08:02 12/20/17 08:05 12/20/17 08:02 12/20/17 08:05 12/20/17 08:02 - Medications Medications: Current Medications Aspirin (Ecotrin) 81 mg PO DAILY [facility] Last Admin: 12/20/17 08:05 Dose: 81 mg Atorvastatin Calcium (Lipitor) 20 mg PO [facility] Last Admin: 12/19/17 21:16 Dose: 20 mg Clopidogrel Bisulfate (Plavix) 75 mg PO DAILY [facility] Last Admin: 12/20/17 08:05 Dose: 75 mg Insulin Detemir (Levemir) 18 units SC [facility] Last Admin: 12/19/17 21:16 Dose: 18 u Metoprolol Succinate (Toprol Xl) 25 mg PO DAILY [facility] Last Admin: 12/20/17 08:05 Dose: 25 mg Tamsulosin HCl (Flomax) 0.4 mg PO DAILY [facility] Last Admin: 12/20/17 08:06 Dose: 0.4 mg - Constitutional Appears: Well - Head Exam Head Exam: ATRAUMATIC, NORMAL INSPECTION, NORMOCEPHALIC - Eye Exam Eye Exam: EOMI, Normal appearance, PERRL Pupil Exam: NORMAL ACCOMODATION, PERRL - ENT Exam ENT Exam: Mucous Membranes Moist, Normal Exam - Neck Exam Neck Exam: Full ROM, Normal Inspection. absent: Lymphadenopathy - Respiratory Exam Respiratory Exam: Clear to Ausculation Bilateral, NORMAL BREATHING PATTERN - Cardiovascular Exam Cardiovascular Exam: REGULAR RHYTHM, +S1, +S2. absent: Murmur - GI/Abdominal Exam GI & Abdominal Exam: Soft, Normal Bowel Sounds. absent: Tenderness - Rectal Exam Rectal Exam: NORMAL INSPECTION - Extremities Exam Extremities Exam: Full ROM, Normal Capillary Refill, Normal Inspection. absent : Joint Swelling, Pedal Edema - Back Exam Back Exam: NORMAL INSPECTION - Neurological Exam Neurological Exam: Alert, Awake, CN II-XII Intact, Normal Gait, Oriented x3 - Psychiatric Exam Psychiatric exam: Normal Affect, Normal Mood - Skin Skin Exam: Dry, Intact, Normal Color, Warm Assessment and Plan (1) Dehydration Status: Acute (2) Hypertension Status: Acute (3) Near syncope Status: Acute (4) Vasovagal near syncope Status: Acute (5) BPH (benign prostatic hyperplasia) Status: Acute (6) Diabetes 1.5, managed as type 2 Status: Acute - Assessment and Plan (Free Text) Plan: discharge home today
== END 2017-12-20 12:50 | disposition home or self-care (01) | DRG 641 ==
LOC: H.TCU 15:11
PROVIDERS: ADMIT Internal Medicine Pulmonary Disease; ATTEND Internal Medicine Pulmonary Disease
PROC: F08Z1FZ Dressing Techniques Treatment using Assistive, Adaptive, Supportive or Protective Equipment (ICD-10-PCS; principal; 2017-12-12)
PROC: F07Z5FZ Bed Mobility Treatment using Assistive, Adaptive, Supportive or Protective Equipment (ICD-10-PCS; 2017-12-12)
PROC: F07Z8FZ Transfer Training Treatment using Assistive, Adaptive, Supportive or Protective Equipment (ICD-10-PCS; 2017-12-12)
PROC: F07L6FZ Therapeutic Exercise Treatment of Musculoskeletal System - Lower Back / Lower Extremity using Assistive, Adaptive, Supportive or Protective Equipment (ICD-10-PCS; 2017-12-12)
DX: E86.0 Dehydration (principal); I10 Essential (primary) hypertension; N40.0 Benign prostatic hyperplasia without lower urinary tract symptoms; E11.9 Type 2 diabetes mellitus without complications; E78.5 Hyperlipidemia, unspecified; R55 Syncope and collapse